=== PATIENT | male | born 1985 | race Caucasian/White ===

== ENCOUNTER 2024-01-16 15:16 | Emergency (ER) | payer OTHER, SELFPAY ==
[2024-01-16] VITALS (15 sets, daily range): BP systolic 123–174; BP diastolic 57–106; PULSE 61–113; RESP 14–24; TEMP 37.1; O2SAT 72–100; BMI 34.8
--- NOTE | 2024-01-16 15:27 | ED_ITS ---
HPI - Extremity Injury (Lower) General Chief Complaint: Extremity Injury, Lower Stated Complaint: R Ankle fx Time Seen by Provider: 01/16/24 15:22 History of Present Illness HPI Narrative: 38-year-old male presents by EMS for right ankle deformity. Patient was hiking when he slipped and fell, twisting his ankle. Obvious deformity to right ankle. Palpable pulses Related Data Previous Rx's Medication Instructions Recorded methocarbamol 500 mg tablet 500 mg PO QID #30 tabs 01/16/24 oxycodone 5 mg capsule 5 mg PO Q8H PRN pain #14 caps 01/16/24 Allergies Allergy/AdvReac Type Severity Reaction Status Date / Time No Known Drug Allergies Allergy Verified 01/16/24 15:52 Review of Systems Review of Systems Narrative: See HPI Patient History Medical History (Updated 01/16/24 @ 17:29 by Niki Galvin MD) Headache Surgical History (Updated 01/01/23 @ 19:57 by Sheree Rod) History of ear surgery Social History Smoking Status: Former smoker Smoking Status: Former smoker Exam Initial Vital Signs Initial Vital Signs: Vital Signs Temperature 98.8 F 01/16/24 15:25 Pulse Rate 66 01/16/24 15:25 Respiratory Rate 24 01/16/24 15:25 Blood Pressure 161/83 H 01/16/24 15:25 Pulse Oximetry 100 01/16/24 15:25 Oxygen Delivery Method Room Air 01/16/24 15:25 Const: Awake, alert, in pain Cardiac: regular rate, regular rhythm RESP: unlabored, clear bilaterally, no wheezing MSK: Obvious deformity right ankle, palpable pulses Skin: Warm, Dry, intact Neuro: AO x3, CN II-XII grossly intact, moves all extremities Procedures Orthopedic Fracture Reduction Fracture #1: Time Out Performed: Yes Side: right Fracture Reduction Location: tibia Analgesia: procedural sedation Technique: direct manipulation and traction/counter-traction Post Reduction X-rays Demonstrate: acceptable reduction Post-reduction neuro exam: intact Post-reduction vascular exam: intact Splint Applied: Yes Patient Tolerated Procedure: Well and No complications Orthopedic Splinting/Casting Injury #1: Side: right Lower Extremity Injury Location: ankle Lower Extremity Immobilizer: posterior splint and stirrup splint Other Orthopedic Equipment: crutches Post splinting neuro exam: intact Post splinting vascular exam: intact Placed by: Provider Procedural Sedation Consent signed: Yes Time out performed: Yes Indication: fracture/dislocation reduction ASA Class: II Mallampati Airway Classification: Class II Ketamine dose (mg): 100 IV Propofol dose (mg): 100 Intraservice time/total sedation time (min): 20 ED Sedation Level: Deep Patient Tolerated Procedure: Well Complications: Respiratory Depression-Repositioning Required Course Orders Ordered: Discontinued Medications Hydromorphone HCl (Hydromorphone 1 Mg Inj) 1 mg IV NOW ONE Stop: 01/16/24 15:27 Last Admin: 01/16/24 15:41 Dose: 1 mg Documented By: KENNETH Acetaminophen (Ofirmev) 1,000 mg in 100 mls @ 400 mls/hr IV NOW ONE Stop: 01/16/24 15:40 Last Infusion: 01/16/24 16:06 Dose: Infused Documented By: Admin: 01/16/24 15:48 Dose: 400 mls/hr Documented By: KENNETH Sodium Chloride (Normal Saline 0.9%) 1,000 mls @ 1,000 mls/hr IV BOLUS ONE Stop: 01/16/24 16:25 Last Infusion: 01/16/24 16:30 Dose: Infused Documented By: Admin: 01/16/24 15:40 Dose: 1,000 mls/hr Documented By: KENNETH Ketamine HCl (Ketamine 500 Mg/5 Ml Inj) 150 mg IV NOW ONE Stop: 01/16/24 15:42 Last Admin: 01/16/24 17:00 Dose: 150 mg Documented By: KENNETH Ketorolac Tromethamine (Ketorolac 30 Mg/Ml Vial) 15 mg IV NOW ONE Stop: 01/16/24 15:27 Last Admin: 01/16/24 15:42 Dose: 15 mg Documented By: KENNETH Lorazepam (Lorazepam 2 Mg/Ml Inj) 1 mg IV NOW ONE Stop: 01/16/24 15:27 Last Admin: 01/16/24 15:47 Dose: 1 mg Documented By: KENNETH Propofol (Propofol 200 Mg/20 Ml Vial) 200 mg IV NOW ONE Stop: 01/16/24 18:05 Last Admin: 01/16/24 17:08 Dose: 150 mg Documented By: KENNETH Vital Signs Vital signs: Vital Signs - 8 hr 01/16/24 15:25 01/16/24 15:43 01/16/24 16:00 Temperature 98.8 F Pulse Rate 66 65 66 Respiratory Rate 24 19 20 Blood Pressure 161/83 H Pulse Oximetry 100 100 100 Oxygen Delivery Method Room Air Room Air Oxygen Flow Rate 01/16/24 16:01 01/16/24 16:01 01/16/24 16:30 Temperature Pulse Rate 65 62 Respiratory Rate 21 18 Blood Pressure 130/75 Pulse Oximetry 100 100 Oxygen Delivery Method Room Air Oxygen Flow Rate 01/16/24 16:30 01/16/24 17:00 01/16/24 17:00 Temperature Pulse Rate 113 H Respiratory Rate 14 Blood Pressure 126/80 174/106 H Pulse Oximetry 97 Oxygen Delivery Method Oxygen Flow Rate 01/16/24 17:04 01/16/24 17:04 01/16/24 17:10 Temperature Pulse Rate 69 Respiratory Rate 22 Blood Pressure 147/72 H Pulse Oximetry 85 L 72 L Oxygen Delivery Method Room Air Oxygen Flow Rate 6 01/16/24 17:15 01/16/24 17:20 01/16/24 17:25 Temperature Pulse Rate Respiratory Rate Blood Pressure Pulse Oximetry 92 96 99 Oxygen Delivery Method Oxygen Flow Rate 6 4 0 01/16/24 17:30 01/16/24 17:30 Temperature Pulse Rate 70 Respiratory Rate 17 Blood Pressure 134/79 Pulse Oximetry 98 Oxygen Delivery Method Room Air Oxygen Flow Rate MDM - Extremity Injury (Lower) Differential Diagnosis Differential diagnosis: Likely ankle sprain and strain, acute internal derangement of knee and fracture of femur Imaging Data Extremity x-ray #1: Radiologist's Impression: PROCEDURE: XR ANKLE RT MIN 3V INDICATIONS: SLIP AND FALL, DEFORMITY TECHNIQUE: 2 views of the ankle were acquired. COMPARISON: None. FINDINGS: Bones: No dislocations. Ankle mortise is normally aligned. No suspicious bony lesions. There is a spiral fracture involving the distal tibial may metadiaphyseal junction, and also a mildly comminuted diagonal fracture at the superior aspect of the lateral malleolus. This is associated varus angulation along both of the fracture planes but without dislocation. Soft tissues: No tibiotalar joint effusion. Achilles tendon appears normal. IMPRESSION: Diagonal and spiral fractures involving the distal fibula and distal tibia respectively as discussed, with abnormal angulation and unstable appearance. Dictated by: Waqar Hay M.D. on 01/16/2024 at 16:12 Approved by: Waqar Hay M.D. on 01/16/2024 at 16:14 Extremity x-ray #2: Radiologist's Impression: PROCEDURE: XR ANKLE RT 2V INDICATIONS: reduction TECHNIQUE: 2 views of the ankle were acquired. COMPARISON: [facility], CR, XR TIBIA FIBULA RT 2V, 01/16/2024, 15:26. [facility], CR, XR ANKLE RT MIN 3V, 01/16/2024, 15:26. FINDINGS: Bones: Casting material obscures fine bony detail. Spiral fracture the distal tibia. There is mild displacement. Alignment is improved post casting. No dislocations. Ankle mortise is normally aligned. No suspicious bony lesions. Soft tissues: No tibiotalar joint effusion. Achilles tendon appears normal. IMPRESSION: Improved alignment of the distal tibia fracture post alignment. Dictated by: Amando Nunez M.D. on 01/16/2024 at 17:54 Approved by: Amando Nunez M.D. on 01/16/2024 at 17:55 MDM Narrative Medical decision making narrative: Ankle fracture and dislocation. During reduction and procedure patient was quite resistant to analgesia and both ketamine and propofol were given for reduction. Improved alignment postprocedure. Neurovascularly intact pre and post procedure. Given pain medications, crutches, orthopedic surgery referral. Discharge Plan Departure Patient Disposition: Home Clinical Impression: Ankle fracture, right Instructions: DI for Ankle Fracture Activity Restrictions/Additional Instructions: Follow up with Orthopedic surgery, a referral has been provided. Take Tylenol, ibuprofen, prescribed pain medications. Elevate your leg any time your resting to help decrease swelling and pain. Do not bear any weight on your leg. Prescriptions: New oxycodone 5 mg capsule 5 mg PO Q8H PRN (Reason: pain) Qty: 14 0RF methocarbamol 500 mg tablet 500 mg PO QID Qty: 30 0RF Referrals: Jenna Dennis DO [Primary Care Provider] - Twan Silva MD [Physician] - Stand Alone Forms: Patient Portal/API
--- NOTE | 2024-01-16 15:27 | DI.RAD.S_ITS ---
PROCEDURE: XR TIBIA FUBULA RT 2V INDICATIONS: SLIP AND FALL, ANKLE DEFORMITY TECHNIQUE: 2 views of the tibia and fibula were acquired. COMPARISON: None. FINDINGS: Bones: No superior fractures or dislocations beyond the significant fractures and angulation discussed during ankle plain film report same day. No suspicious bony lesions. Soft tissues: No suspicious soft tissue calcifications or masses. IMPRESSION: The ankle fractures are again seen, but more superiorly no additional trauma is found. Please refer to the ankle plain film dictation report for further details. Dictated by: Waqar Hay M.D. on 01/16/2024 at 16:14 Approved by: Waqar Hay M.D. on 01/16/2024 at 16:15
[2024-01-16] MEDS: SODIUM CHLORIDE 0.9% 1,000 ML 1000 ML IV (15:40)
[2024-01-16] MEDS: HYDROMORPHONE 1 MG INJ IV (15:41)
[2024-01-16] MEDS: KETOROLAC 30 MG/ML VIAL 15 MG IV (15:42)
[2024-01-16] MEDS: LORazepam 2 MG/ML INJ 1 MG IV (15:47)
[2024-01-16] MEDS: ACETAMINOPHEN IV 1,000 MG/100 ML VIAL 400 MG IV (15:48)
--- NOTE | 2024-01-16 16:57 | DI.RAD.S_ITS ---
PROCEDURE: XR ANKLE RT 2V INDICATIONS: reduction TECHNIQUE: 2 views of the ankle were acquired. COMPARISON: [facility], CR, XR TIBIA FIBULA RT 2V, 01/16/2024, 15:26. [facility], CR, XR ANKLE RT MIN 3V, 01/16/2024, 15:26. FINDINGS: Bones: Casting material obscures fine bony detail. Spiral fracture the distal tibia. There is mild displacement. Alignment is improved post casting. No dislocations. Ankle mortise is normally aligned. No suspicious bony lesions. Soft tissues: No tibiotalar joint effusion. Achilles tendon appears normal. IMPRESSION: Improved alignment of the distal tibia fracture post alignment. Dictated by: Amando Nunez M.D. on 01/16/2024 at 17:54 Approved by: Amando Nunez M.D. on 01/16/2024 at 17:55
[2024-01-16] MEDS: KETAMINE 500 MG/5 ML INJ 150 MG IV (17:00)
--- NOTE | 2024-01-16 17:00 | PC.NURSE ---
Pt sedated for procedure with RT, Provider, GUITAR MAKER [employer] and RN at bedside. Pt became apneic, snorring and o2 dropped to 72% during procedure. Pt placed on 6L NC and o2 increased quickly. RT assisted with airway repositioning. Additional sedation ordered durring procedure ( see MAR). Pt's family out to waiting room durring procedure.
[2024-01-16] MEDS: propofoL 200 MG/20 ML VIAL IV (17:08)
== END 2024-01-16 19:54 | disposition home or self-care (01) ==
PROVIDERS: Emergency Provider Emergency Medicine; PCP Family Medicine
DX: S82.301A Unspecified fracture of lower end of right tibia, initial encounter for closed fracture (principal); W18.30XA Fall on same level, unspecified, initial encounter; Y93.01 Activity, walking, marching and hiking
CPT/HCPCS: 27825; 73590; 73600; 96365; 96375; 99152; 99284; J0136; J1170; J1885; J2060; J2704

== ENCOUNTER 2024-01-22 12:40 | Day surgery (SDC) | payer OTHER, SELFPAY ==
[2024-01-21 07:51] VITALS: BMI 34.2
[2024-01-22] VITALS (8 sets, daily range): BP systolic 126–156; BP diastolic 64–92; PULSE 67–99; RESP 12–18; TEMP 36–36.4; O2SAT 91–100; BMI 34.8
--- NOTE | 2024-01-22 | DI.RAD.S_ITS ---
PROCEDURE: XR ANKLE RT 2V INDICATIONS: TIBIA SHAFT FRACTURE TECHNIQUE: 4 views of the ankle were acquired. COMPARISON: [facility], CR, XR ANKLE RT 2V, 01/16/2024, 16:58. FINDINGS: Multiple intraoperative fluoroscopic images of the right distal tibia and fibula demonstrate interval open reduction and internal fixation of distal fibular and tibial fractures with plate and screw fixation. No gross hardware complication. Postsurgical alignment appears anatomic. Multiple skin janice noted over the lateral aspect of the ankle. IMPRESSION: Intraoperative fluoroscopic support for open reduction and internal fixation of distal right fibular and tibial fractures. Please see separate procedure note for further details. Dictated by: Kwadwo Dinero M.D. on 01/23/2024 at 10:42 Approved by: Kwadwo Dinero M.D. on 01/23/2024 at 10:44
[2024-01-22] MEDS: ACETAMINOPHEN 325 MG TABLET 975 MG PO (14:21)
[2024-01-22] MEDS: LACTATED RINGERS 1,000 ML 42 ML IV ×3 (14:22→18:59)
--- NOTE | 2024-01-22 16:19 | SUR.PREOP ---
Block start time [1607] . Monitoring initiated and maintained throughout procedure. Oxygen and medications given per anesthesiologist instructions. Patient remained stable throughout procedure, no adverse reactions noted. Block end time [1617].
--- NOTE | 2024-01-22 16:30 | PM.PREOP ---
Pre-operative Note Interval Note History & Physical reviewed/Exam performed by Physician: Yes Changes to H&P: No
[2024-01-22] MEDS: CEFAZOLIN 2 GM/100 ML PREMIX 100 ML IV (16:35)
[2024-01-22] MEDS: BUPIVACAINE 0.25% (PF) 30 ML, EPINEPHrine 0.15 MG INJ (17:07)
--- NOTE | 2024-01-22 17:08 | SUR.OPER ---
Supine on padded OR bed, wedge under upper torso, arms secured on padded arm boards at <90 degrees abduction, legs uncrossed, safety belt at thigh, tape over blanket over lower left leg, axillary roll under right hip.
--- NOTE | 2024-01-22 18:45 | PM.OP.1 ---
Operative Date/Time/Diagnoses Date of procedure: 01/22/24 Time of procedure: 16:30 Pre-op diagnosis: Right tibia shaft fracture, right distal fibula fracture Post-op diagnosis: same Procedure & Clinicians Procedure: Open reduction internal fixation of a right distal tibia shaft fracture, open reduction internal fixation of a right distal fibular fracture Same procedure as scheduled: Yes Indications: Displaced right Distal tibia shaft fracture with extension closed to the joint line as well as a displaced right distal fibular fracture Surgeon: Twan Silva Control Clerk Food [employer] Beverage: Clifton Romero Anesthesia Type: General and Peripheral nerve block Operative Notes Findings: Right Displaced distal fibular fracture as well as a displaced tibia shaft fracture with distal extension no sign of any articular extension into the plafond Closure Type: primary Applied: implant(s) (Ca and Nephew distal fibular plate and a Ca and Nephew distal tibia plate) Estimated Blood Loss (mL): 10 Tourniquet time (min): 96 Procedure in detail: On date of service, patient was met in the holding area where her operative site was signed and witnessed by the OR staff. Surgeries once again discussed with the patient and any remaining questions or concerns he had were answered fully. Patient was taken back to the operating theater. Placed on the operating table in a supine position. Great care was taken to ensure that all bony prominences were appropriately padded. Well-padded tourniquet was placed up along the right leg. Time-out was performed verifying patient's name, procedure, and operative site. Right leg was prepped and draped in normal sterile fashion. Esmarch was used to exsanguinate the limb and the tourniquet was turned up to 250 mm of mercury. Ten blade was used to incise through skin and fascial tissue. An incision was made starting at the tip of the distal fibula and extending proximally. Deep knife was used to continue sharp dissection down to the periosteum of the distal fibula. Periosteal tissue was dissected off the distal fibula giving us good visualization of the fracture. A curette was used to debride the fracture site removing any interposed soft tissue. Then the fracture site was copiously irrigated. Next, 2 point reduction forceps were used to reduce the fracture. C-arm was brought in to verify reduction. Once we were satisfied with the reduction combination of 2 point reduction forceps as well as crab claw was used to hold the fracture reduced. Next, distal fibular plate was placed and held provisionally. This was then secured both proximal and distal to the fracture the combination of locking and nonlocking screws. The plate and screws plus the lag screw provided strong overall fixation and stabilization of the fracture. The wound was then copiously irrigated. It was closed in layered fashion. We then turned our attention to the medial aspect. An extended incision was made starting at the medial malleolus going up the tibial shaft. Fifteen blade was used to incise through skin and fascial tissue. Sharp dissection was continued with a deep knife give us good visualization the distal tibial shaft fracture. Neurovascular bundle was identified and protected. Fracture site was debrided removing any inter position of tissue. This was then irrigated removing any debris and then a 2 point reduction forceps were used to reduce the fracture. C-arm was brought in and the reduction was verified. Distal tibial plate was then positioned and verified with C-arm. Once we are satisfied with plate positioning as well as reduction the plate was secured both distally and proximally with a combination of locking and nonlocking screws. This provided secure fixation of the fracture. Final x-rays were obtained verifying reduction of both medial and lateral malleolus as well as closed reduction of the posterior malleolus. No sign of any widening of the mortise. The wound was then closed in a layered fashion. Patient's leg was cleaned, dried, and dressed and a splint was placed. Patient was extubated and taken to the PACU in stable condition. The assistance of a skilled surgical training specialist was necessary during this procedure for reducing the fracture during the placement of the plate. The case would have been much longer and more difficult had an critical care physician assistant not been available. The services of the surgical training specialist were necessary for this case. Complications: none Post-operative Condition: stable Disposition: PACU Plan for aftercare: Patient is toe-touch weight-bearing while in his splint once he is converted over to a fracture boot he can be weight-bearing as tolerated in the boot.
[2024-01-22] MEDS: MEPERIDINE 50 MG/ML INJ 25 MG IV (18:55)
[2024-01-22] MEDS: ONDANSETRON 4 MG/2 ML INJ IV ×2 (18:56→19:16)
[2024-01-22] MEDS: HYDROMORPHONE 1 MG INJ IV (18:57)
[2024-01-22] MEDS: OXYCODONE IR 5 MG TABLET PO ×2 (19:00→19:22)
== END 2024-01-22 19:41 | disposition home or self-care (01) ==
PROVIDERS: PCP Family Medicine; Referring Provider Orthopaedic Surgery; Visit Provider Orthopaedic Surgery
PROC: (CPT 27759; principal; 2024-01-22 14:30)
DX: S82.201A Unspecified fracture of shaft of right tibia, initial encounter for closed fracture (principal); S82.64XA Nondisplaced fracture of lateral malleolus of right fibula, initial encounter for closed fracture; G89.18 Other acute postprocedural pain; W01.0XXA Fall on same level from slipping, tripping and stumbling without subsequent striking against object, initial encounter
CPT/HCPCS: 27758; 64450; 73600; 76000; C1713; J0171; J0690; J1100; J1170; J1885; J2175; J2250; J2405; J2704; J3010